=== PATIENT | female | born 1950 | race Caucasian/White ===

== ENCOUNTER 2018-05-18 08:58 | Emergency (ER) | payer MEDICARE, MEDICAID ==
[2018-05-18] MEDS ORDERED: Morphine VIAL* 4 MG/ML VIAL (1 ml vial) IV ONE ×2 (09:00→10:54)
[2018-05-18] MEDS ORDERED: diPHENhydraMINE IV* 50 MG/ML 1 ml VIAL (BENADRYL) IV ONE (09:04)
[2018-05-18] MEDS ORDERED: hydrOXYzine IM* 50 MG/ML VIAL ONE (09:07)
--- NOTE | 2018-05-18 12:02 | ED ---
Upper Extremity Pain - HPI Summary HPI Summary: Patient presents status post fall with left arm pain and shoulder deformity - BIBA. She reports she was walking to get her check at the bank when she slipped and fell onto her LUE on the ice. Denies any other injuries such as head injury, neck pain, back pain, chest or abdominal pain, lower extremity pain. She denies numbness, tingling, weakness in her arm however it is painful even to move her fingers here. She has a deformed left shoulder. She is right- hand dominant. Reports she lives alone in a multi-unit house in [place] - has a corrections caseworker and insurance. Takes the bus to get around town. States " I can't take any medications - I'm allergic to all meds - they cause convulsions". Asked if she would like to try something for pain and she is okay with trying morphine. Chart indicates h/o schizophrenia. - History of Current Complaint Chief Complaint: EDExtremityUpper Stated Complaint: LEFT ARM PAIN Time Seen by Provider: 05/18/18 08:59 Hx Obtained From: Patient - Allergies/Home Medications Allergies/Adverse Reactions: Allergies Allergy/AdvReac Type Severity Reaction Status Date / Time MS Shellfish Allergy AdvReac Unknown Headache Verified 01/12/14 19:43 [Shellfish Allergy] PMH/Surg Hx/FS Hx/Imm Hx Previously Healthy: Yes - pt reports she takes no medications - only vitamins Endocrine/Hematology History: Denies: Hx Anticoagulant Therapy, Hx Blood Disorders, Hx Unexplained Bleeding Psychiatric History: Reports: Hx Schizophrenia - per chart - pt denies taking any medications Denies: Hx of Violent Episodes Against Others Infectious Disease History: Unable to Obtain/Confirm Infectious Disease History: Denies: Traveled Outside the [place] in Last 30 Days - Social History Occupation: Employed Full-time - clothing/sewing Lives: Alone Alcohol Use: None Hx Substance Use: No Substance Use Type: Reports: None Hx Tobacco Use: Yes Smoking Status (MU): Current Every Day Smoker Type: Cigarettes Review of Systems Constitutional: Negative Eyes: Negative ENT: Negative Cardiovascular: Negative Respiratory: Negative Gastrointestinal: Negative Positive: no symptoms reported Positive: Arthralgia, Myalgia, Decreased ROM, Edema Skin: Negative Neurological: Negative Positive: Anxious All Other Systems Reviewed And Are Negative: Yes Physical Exam Triage Information Reviewed: Yes Vital Signs On Initial Exam: Initial Vitals Temp Pulse Resp BP Pulse Ox 98.2 F 76 16 122/72 96 05/18/18 09:09 05/18/18 09:09 05/18/18 09:09 05/18/18 09:09 05/18/18 09:09 Vital Signs Reviewed: Yes Appearance: Positive: Pain Distress - pt yelling repeatedly in pain, Thin Skin: Positive: Warm, Skin Color Reflects Adequate Perfusion, Dry - ecchymosis over Lt shoulder - no skin breakdown Head/Face: Positive: Normal Head/Face Inspection - atraumatic Eyes: Positive: Normal, EOMI, JAMES - no photophobia, Conjunctiva Clear ENT: Positive: Normal ENT inspection, Hearing grossly normal, Pharynx normal - atrauamtic Dental: Positive: Gross Decay/Caries @ Neck: Positive: Supple, Nontender Respiratory/Lung Sounds: Positive: Breath Sounds Present Cardiovascular: Positive: Pulses are Symmetrical in both Upper and Lower Extremities Abdomen Description: Positive: Nontender, Soft Musculoskeletal: Positive: Strength/ROM Intact - FROM cervical spine w/o pain or restriction, Limited @ - Lt UE limited d/t pain - gross deformity of the Neurological: Positive: Sensory/Motor Intact - does not move LUE d/t pain but all other extremities mobile, Alert, Oriented to Person Place, Time, CN Intact II-III Psychiatric: Positive: Other - pt repeats herself at times but is able to answer direct questions at other times - no SI/HI Diagnostics - Vital Signs Vital Signs Temp Pulse Resp BP Pulse Ox 05/18/18 11:39 125/71 05/18/18 11:09 118/70 05/18/18 11:07 121/72 05/18/18 11:01 20 05/18/18 10:39 121/64 05/18/18 10:28 76 93 05/18/18 10:10 130/77 05/18/18 09:15 18 05/18/18 09:09 98.2 F 76 16 122/72 95 - Laboratory Lab Statement: Any lab studies that have been ordered have been reviewed, and results considered in the medical decision making process. Re-Evaluation - Re-Evaluation First Eval Change: Improved Course/Dx - Course Course Of Treatment: Pt here w/ Lt arm pain s/p fall. She denies head injury and is w/o neuro deficits. She is placed in a sling and provided with pain medications, both ibuprofen and norco and states she's comfortable trying these as she eventually relays that she takes ibuprofen at home. She also voices understanding how to take these and that if she takes more than she's supposed to that she can overdose/. These were filled at the hospital pharmacy for patient. JOVANY also intervened to make sure she had a ride home via medicaid cab, an ortho f/u appt w/ date and time provided today so she may make arrangements for f/u, and called her corrections caseworker to make sure she can function with ADL's at home (pre pt's request). Waiting to hear back from JOVANY re: contact of her corrections caseworker. - Diagnoses Provider Diagnoses: Closed fracture of left proximal humerus, Social problem Discharge - Sign-Out/Discharge Documenting (check all that apply): Patient Departure - Discharge Plan Condition: Stable Disposition: HOME Prescriptions: HYDROcodone/ACETAMIN 5-325 MG* [[place] 5-325 TAB*] 1 tab PO Q6H PRN #20 tab MDD 4 PRN Reason: Pain Ibuprofen TAB* [Motrin TAB* 600 MG] 600 mg PO Q6H PRN #20 tab PRN Reason: Pain Patient Education Materials: How to Use a Sling (ED), Proximal Humerus Fracture (ED) Forms: *Work Release Referrals: Leticia Asencio MD [Medical Doctor] - Additional Instructions: You have broken your Left arm. It is important that you keep your arm in a sling and do not use it until you are seen by orthopedics (bone injury specialist). Ice the shoulder for 20 minutes at a time and repeat every 1-2 hours for relief of pain/swelling. A reusable ice pack has been provided for you today. Your appointment with orthopedics is on Wednesday05/23/2018 at 10:00AM with Dr. Asencio - please bring your insurance card and photo ID Call your cab service to schedule a ride for your appointment. Take pain medications as directed: #1 Ibuprofen 600mg 1 tablet by mouth every 6 hours with food for pain and swelling #2 [place] 5/325mg (hydrocodone with acetaminophen) 1 tablet by mouth every 6 hours with food as needed for pain You may alternate these 2 medications. It may also help to write down the time when you take them so you prevent taking too much as taking too many medications can results in overdose and . You have expressed understanding this today. Contact your case aide if you need further assistance with meals, etc. If in the meantime you feeling numbness, tingling in your arm or your arm swells , you need to return to the ED. - Billing Disposition and Condition Condition: STABLE Disposition: Home
[2018-05-18 13:51] VITALS: BP 132/79
== END 2018-05-18 13:50 | disposition home or self-care (01) ==
LOC: ED 08:58
DX: S42.202A Unspecified fracture of upper end of left humerus, initial encounter for closed fracture (principal); F17.210 Nicotine dependence, cigarettes, uncomplicated; W00.0XXA Fall on same level due to ice and snow, initial encounter; Y93.01 Activity, walking, marching and hiking; Y92.9 Unspecified place or not applicable; F20.89 Other schizophrenia; Z60.9 Problem related to social environment, unspecified
CPT/HCPCS: 96374; 96375; 96376; 99284; J2270; J3410